=== PATIENT | male | born 1940 | race African-American/Black ===

== ENCOUNTER 2020-10-06 06:12 | Outpatient (REF) | payer MEDICARE, SELFPAY ==
--- NOTE | 2020-10-06 08:20 | FL_ITS ---
EXAMINATION: XR FLUOROSCOPY WITH IMAGES CLINICAL INFORMATION: Left thoracic spine injection COMPARISON: None. TECHNIQUE: Fluoroscopy performed by Maite Mccann. Fluoroscopy time: 0.2 minutes DAP: 1.6 Gycm2 Images: 1 FINDINGS: Single fluoroscopic image demonstrates needle placement near the left side of a mid thoracic vertebral body. FL/FL guidance in treatment room IMPRESSION: Fluoroscopy guidance for needle placement.
== END 2020-10-06 06:13 | disposition home or self-care (01) ==
LOC: HO.RADIR 06:12
PROVIDERS: Visit Provider Anesthesiology
DX: G58.8 Other specified mononeuropathies (principal)
CPT/HCPCS: 64420; Q9967

== ENCOUNTER → 2020-10-12 10:22 | Outpatient (BNVA) | payer MEDICARE, SELFPAY | PROVIDERS: PCP Internal Medicine; Visit Provider Anesthesiology | DX: G58.8 Other specified mononeuropathies (principal) | CPT/HCPCS: 99212 ==

== ENCOUNTER → 2020-10-30 15:14 | Outpatient (BNVA) | payer MEDICARE, SELFPAY | PROVIDERS: PCP Internal Medicine; Visit Provider Nurse Practitioner Family ==